=== PATIENT | female | born 1980 | race Two or more races ===

== ENCOUNTER 2025-04-18 23:28 | Emergency (ER) | payer SELFPAY ==
[~2025-04-18] VITALS: Ht 175.3 cm; Wt 59.1 kg
[2025-04-19 00:20] VITALS: TEMP 97.905272
[2025-04-19] MEDS: IBUPROFEN 400 MG TABLET PO ONE (01:18)
[2025-04-19] MEDS: ACETAMINOPHEN 500 MG TABLET PO ONE (01:18)
[2025-04-19] MEDS: LIDOCAINE 5% TRANSDERMAL PATCH TD ONE (02:04)
[2025-04-19] MEDS ORDERED: LIDO-57 TP (04:31)
[2025-04-19] MEDS ORDERED: METH-812 PO (04:31)
[2025-04-19 05:10] VITALS: BP 143/88; PULSE 68; RESP 17; O2SAT 100
== END 2025-04-19 05:30 | disposition home or self-care (01) ==
LOC: EMS 23:28
DX: S46.911A Strain of unspecified muscle, fascia and tendon at shoulder and upper arm level, right arm, initial encounter (principal); X58.XXXA Exposure to other specified factors, initial encounter; Y93.89 Activity, other specified; Y92.89 Other specified places as the place of occurrence of the external cause; Y99.8 Other external cause status
CPT/HCPCS: 99284; Z7502; Z7610